=== PATIENT | female | born 1975 | race Caucasian/White ===

== ENCOUNTER → 2023-09-04 | Outpatient (REF) | payer OTHER, SELFPAY | LOC: DHSLP | PROVIDERS: ATTENDING PHYSICIAN Internal Medicine; FAMILY PHYSICIAN Physician Assistant | DX: G47.33 Obstructive sleep apnea (adult) (pediatric) (principal) | CPT/HCPCS: 95800 ==

== ENCOUNTER 2023-10-07 16:12 | Emergency (ER) | payer OTHER, SELFPAY ==
[2023-10-07 16:15] VITALS: BP 172/111
[2023-10-07 17:52] VITALS: BMI 47.7
[2023-10-07] MEDS: TYLENOL 1000 MG PO (18:00)
--- NOTE | 2023-10-07 18:11 | ED.GENMED ---
History of Present Illness
General
Chief Complaint: Eye Problems
Source: patient
Exam Limitations: none
Time Seen by Provider: 10/07/23 17:38
Nursing documentation reviewed up to this point in time: agreed with
History of Present Illness
History of Present Illness:
47-year-old female sent by PCP for pain in her left, onset yesterday, worse with opening her eye unsure if she could have gotten something in her eye she was at her PCP referred to the ER she does have a history of angle-closure glaucoma not
currently on drops she has had laser surgery x 2
Past History
Past History
ED Past Medical History: Other (Angle-closure glaucoma)
ED Past Surgical History: Other (Eye surgery)
Social History
Tobacco: Non-smoker
Alcohol: None
Drug: None
Personal: Single
Living: with family
Employment: Employed
Review of Systems
Review of Systems
All Other Systems: Not applicable
EENT: Reports other
Respiratory: Reports no symptoms
Cardiac: Reports no symptoms
ABD/GI: Reports no symptoms
Phy Exam
Physical Exam
Physical Exam:
Physical Exam
General: no apparent distress, not acutely ill
Neck: Mild photophobia on the left, pupils round and reactive bilateral (uptake of fluorescein horizontally from 8-4 o'clock)
Heart: s1/s2 regular rate and rhythm, no murmur. equal radial pulses.
Lungs: no acute respiratory distress. clear bilaterally
Neuro: alert and oriented. no focal neurological deficits
Skin: no rash
Psychiatric: well kept. interactive and cooperative
Extremities: no edema.
Course
Orders/Labs/Results
Orders:
Orders
10/07/23 17:46
Tetracaine HCl [Tetracaine 0.5% Ophthalmic Solution] 1 drop .ROUTE .[facility]
10/07/23 17:50
Acetaminophen [Tylenol] 1,000 mg PO NOW STA
Vital Signs
Initial and Last Documented VS:
Initial Vital Signs
Temp Pulse Resp BP Pulse Ox
98.6 F 101 20 172/111 99
10/07/23 16:15 10/07/23 16:15 10/07/23 16:15 10/07/23 16:15 10/07/23 16:15
Last Documented Vital Signs
Temp Pulse Resp BP Pulse Ox
98.6 F 101 20 172/111 99
10/07/23 16:15 10/07/23 16:15 10/07/23 16:15 10/07/23 16:15 10/07/23 16:15
MDM/Problems Addressed
Differential Diagnosis Includes:
Corneal abrasion, glaucoma, stye conjunctivitis
MDM/Problems Addressed:
Eye pain
Chronic conditions affecting care:
Angle-closure glaucoma
*Pulse Oximetry
Patient hypoxic: no
*Critical Care Note
Total Time (30-74mins, 75-104mins- exclusive of procedures): Not Applicable
Update Note
Update Note:
Update, looks like she has an abrasion, no foreign body seen, symptoms improved markedly after tetracaine drops
Will check intraocular pressures bilaterally due to her history
Intraocular pressure 27 on the right 21 on the left
ED Attending Note
-
Portions of this chart may have been created with voice recognition software.� Occasional wrong word or��sound alike� substitutions may have occurred due to the inherent limitations of voice recognition software.
Discharge Plan
Departure
Prescriptions:
No Action
azithromycin 250 MG tablet
250 mg PO DAILY Qty: 4 0RF
prednisone 50 MG tablet
50 mg PO DAILY Qty: 5 0RF
albuterol sulfate [Proventil HFA] 90 MCG/PUFF HFA aerosol inhaler
1 puff inhalation Q4HPRN PRN (Reason: shortness of breath) Qty: 1 0RF
Referrals:
Anjana Marcelo PA-C [Family Provider] -
Interventions
Interventions:
*Risk Screen - Suicide Last Done: 10/07/23 16:15
*General Assessment Last Done: 10/07/23 16:15
*Neglect/Abuse Screening Last Done: 10/07/23 16:15
ED- Fall Risk Assessment Last Done: 10/07/23 17:53
Discharge Date and Time
Print Language: TELUGU
[2023-10-07] MEDS: ERYTHROMYCIN 0.5% OPHTHALMIC OINTMENT 1 APPLIC OPHTH (19:58)
== END 2023-10-07 20:12 | disposition home or self-care (01) ==
LOC: EMR 16:12
PROVIDERS: EMERGENCY PHYSICIAN Emergency Medicine; FAMILY PHYSICIAN Physician Assistant
DX: S05.02XA Injury of conjunctiva and corneal abrasion without foreign body, left eye, initial encounter (principal); X58.XXXA Exposure to other specified factors, initial encounter; H40.20X0 Unspecified primary angle-closure glaucoma, stage unspecified
CPT/HCPCS: 99282

== ENCOUNTER → 2024-09-29 10:43 | Outpatient (REF) | payer OTHER, SELFPAY | LOC: HWRAD 10:43 | PROVIDERS: ATTENDING PHYSICIAN Family Medicine | DX: M54.6 Pain in thoracic spine (principal); M62.838 Other muscle spasm; G89.29 Other chronic pain; M54.41 Lumbago with sciatica, right side | CPT/HCPCS: 72110; 73502 ==

== ENCOUNTER → 2024-11-05 07:28 | Outpatient (REF) | payer OTHER, SELFPAY | LOC: PAVMRI 07:28 | PROVIDERS: ATTENDING PHYSICIAN Family Medicine | DX: G89.29 Other chronic pain (principal); M54.41 Lumbago with sciatica, right side | CPT/HCPCS: 72148 ==

== ENCOUNTER 2025-04-12 13:15 | Emergency (ER) | payer OTHER, SELFPAY ==
[2025-04-12 13:24] VITALS: BP 176/114
[2025-04-12 13:43] LABS: Hematocrit 42.0 % (37.0-47.0); Hemoglobin 14.6 g/dL (12.0-16.0); Mean Corp Hgb Conc. 34.8 g/dL (33.0-37.0); Mean Corpuscular Volume 89.9 fL (81.0-99.0); Nucleated Red Blood Cells % 0 %; Platelet Count 275 10^3/uL (130-400); Red Cell Dist. Width 13.0 % (11.5-14.5)
[2025-04-12 14:06] LABS: ALT (SGPT) 28 U/L (0-35); AST (SGOT) 29 U/L (14-36); Albumin 4.9 g/dl (3.5-5.0); Alkaline Phosphatase 90 U/L (38-126); Blood Urea Nitrogen 8 mg/dl (7-17); Calcium 9.6 mg/dl (8.4-10.2); Carbon Dioxide 20 mmol/L (22-30); Chloride 105 mmol/L (98-107); Glucose 97 mg/dl (70-99); Potassium 3.7 mmol/L (3.5-5.1); Sodium 138 mmol/L (135-145); Total Protein 8.2 g/dl (6.3-8.2); eGFR > 60.00
[2025-04-12 18:41] VITALS: BP 184/106
[2025-04-12] MEDS: NSS 1000 IV (19:52)
--- NOTE | 2025-04-12 19:56 | ED.GENMED ---
History of Present Illness
General
Chief Complaint: Blood Pressure Problem
Source: patient
Exam Limitations: none
Time Seen by Provider: 04/12/25 18:31
Nursing documentation reviewed up to this point in time: agreed with
History of Present Illness
History of Present Illness:
49-year-old female presenting to the emergency department today with concerns of a tingling sensation to her face shoulders and arms that started this morning. Additionally she took her blood pressure while at work which was elevated. Has had some
increased fatigue as well. Denies any chest pain shortness of breath nausea vomiting, history of blood clots recent trauma surgery immobilization.
Past History
Past History
ED Past Medical History: Other (Angle-closure glaucoma)
ED Past Surgical History: Other (Eye surgery)
Social History
Tobacco: Non-smoker
Alcohol: None
Drug: None
Personal: Single
Living: with family
Employment: Employed
Review of Systems
Review of Systems
Allergies reviewed?: Yes
All Other Systems: ROS reviewed and negative except as documented in HPI and ROS
Phy Exam
Physical Exam
Physical Exam:
GENERAL: Alert , in no apparent distress
EYE: pupils equal and reactive
NECK: Supple, no significant adenopathy.
ENT: o/p clr, mmm.
CARDIAC: Tachycardic otherwise regular
LUNGS: Clear breath sounds bilaterally, no acute respiratory distress, no wheezes/rales/rhonchi
ABDOMEN: Soft, without focal tenderness, no r/g, no cvat
NEUROLOGICAL: Alert and oriented, no focal neuro deficits
SKIN: Warm and dry, skin intact.
MUSCULOSKELETAL: No edema, well perfused.
PSYCH: Normal and appropriate interaction.
Course
Orders/Labs/Results
Orders:
Orders
04/12/25 13:33
EKG [Electrocardiogram (*1)] Urgent
Reason for Study: Tachycardia
EKG- Treatment ONCE
04/12/25 13:36
CBC/With Diff [Complete Blood Count/With Diff] Urgent
Comprehensive Metabolic Panel Urgent
Free T4 Urgent
Comment: ADD ON
Magnesium Urgent
Comment: ADD ON
TSH Urgent
Comment: ADD ON
Vitamin B12 Urgent
Comment: ADD ON
04/12/25 19:26
Vital Signs- Treatment ONCE
Frequency: Once
04/12/25 19:29
0.9% Sodium Chloride 1000 ml [Nss] 1,000 ml IV BOLUS
04/12/25 19:46
D-Dimer Urgent
Troponin I Urgent
04/12/25 20:12
Add On- LAB Urgent
Tests Added?: B12, tsh free t4, magnesium
04/12/25 20:38
Vital Signs- Treatment ONCE
Frequency: Once
Comment: after fluids
Abnormal Lab Results
04/12/25
13:36
MCH 31.3 H pg
(27.0-31.0)
Carbon Dioxide 20 L mmol/L
(22-30)
04/12/25 13:36
04/12/25 13:36
Vital Signs
Initial and Last Documented VS:
Initial Vital Signs
Temp Pulse Resp BP Pulse Ox
98.2 F 118 16 176/114 99
04/12/25 13:24 04/12/25 13:24 04/12/25 13:24 04/12/25 13:24 04/12/25 13:24
Last Documented Vital Signs
Temp Pulse Resp BP Pulse Ox
98.2 F 106 18 159/100 98
04/12/25 13:24 04/12/25 19:59 04/12/25 19:59 04/12/25 19:59 04/12/25 19:59
MDM/Problems Addressed
MDM/Problems Addressed:
49-year-old female presenting to the department today with concerns of tingling sensation of the face shoulders and arms. Hypertensive and tachycardic upon arrival here afebrile labs unremarkable. EKG without ischemic findings. Neurologic
evaluation normal. Patient claims the distribution of tingling is diffusely throughout the head bilateral extremities. This does not seem consistent with any stroke process or central cord issue. She has a normal neurologic evaluation which is
very reassuring. Labs unremarkable D-dimer negative troponin negative. Vital signs significantly improving during ER stay and after receiving a liter of fluids. Patient was advised for close outpatient follow-up otherwise no evidence of emergent
pathology at this time.
*Pulse Oximetry
SaO2: 98
Oxygen Mode of Delivery: Room air
Patient hypoxic: no (98)
*Critical Care Note
Total Time (30-74mins, 75-104mins- exclusive of procedures): Not Applicable
ED Attending Note
-
Portions of this chart may have been created with voice recognition software.� Occasional wrong word or��sound alike� substitutions may have occurred due to the inherent limitations of voice recognition software.
Discharge Plan
Departure
Patient Disposition: Home (Routine Discharge)
Date of Disposition: 04/12/25
Time of Disposition: 20:47
Patient with high blood pressure during this ER visit?: Yes
Condition: Good
Covid-19: Not Applicable
Discharge Problem:
Tingling, Tachycardia
Instructions: BLOOD PRESSURE
Prescriptions:
No Action
azithromycin 250 MG tablet
250 mg PO DAILY Qty: 4 0RF
prednisone 50 MG tablet
50 mg PO DAILY Qty: 5 0RF
albuterol sulfate [Proventil HFA] 90 MCG/PUFF HFA aerosol inhaler
1 puff inhalation Q4HPRN PRN (Reason: shortness of breath) Qty: 1 0RF
oxycodone-acetaminophen [Percocet] 5-325 mg tablet
1 tab PO Q4HPRN PRN (Reason: pain) Qty: 14 0RF
Referrals:
Anjana Marcelo PA-C [Family Provider, [facility]]
Activity Restrictions/Additional Instructions:
You came to the emergency department today with concerns of tingling. You additionally had elevated blood pressure and heart rate initially but improved while here in the ER. Please follow close with your primary care doctor within 1 week. Return
for any worsening, new or concerning symptoms.
Interventions
Interventions:
*General Assessment Last Done: 04/12/25 13:24
*Neglect/Abuse Screening Last Done: 04/12/25 13:24
*Risk Screen - Suicide (C-SSRS) Last Done: 04/12/25 13:24
Discharge Date and Time
Print Language: RUSSIAN
[2025-04-12 19:59] VITALS: BP 159/100
[2025-04-12 20:20] LABS: D-Dimer < 0.27 ug/mlFEU (0.00-0.50)
[2025-04-12 20:28] LABS: Troponin I < 0.012 ng/ml
[2025-04-12 20:45] VITALS: BP 147/97
[2025-04-12 20:50] LABS: Magnesium 2.0 mg/dl (1.6-2.3)
[2025-04-12 21:27] LABS: TSH 2.07 uIU/ml (0.47-4.68)
[2025-04-12 21:41] VITALS: BP 146/98
[2025-04-12 21:46] LABS: Vitamin B12 831 pg/ml (239-931)
== END 2025-04-12 21:41 | disposition home or self-care (01) ==
LOC: EMR 13:15
PROVIDERS: Physician Assistant; Student in an Organized Health Care Education/Training Program; EMERGENCY PHYSICIAN Student in an Organized Health Care Education/Training Program; FAMILY PHYSICIAN Physician Assistant
DX: R20.2 Paresthesia of skin (principal); R00.0 Tachycardia, unspecified; H40.20X0 Unspecified primary angle-closure glaucoma, stage unspecified
CPT/HCPCS: 99284; 96360; 80053; 82607; 83735; 84439; 84443; 84484; 85025; 85379; 93005